=== PATIENT | female | born 1965 | race Caucasian/White ===

== ENCOUNTER 2019-02-21 06:58 | Day surgery (SDC) | payer BC ==
[~2019-02-21 06:58] MED LIST: Buffered Lidocaine 1% SYRIN* 1 ML/SYRINGE INTRADERM ONE; Dexamethasone IV* 4 MG/ML 1 ML (4 MG) IV SLOW PU ONE; Famotidine IV* 10 MG/ML 2 ML (20 mg) IV ONE; Lactated Ringers 1000 ML Bag* 1,000 ML IV SCH
[2019-02-21] MEDS ORDERED: Dexamethasone IV* 4 MG/ML 1 ML (4 MG) ONE (07:25)
[2019-02-21] MEDS ORDERED: Famotidine IV* 10 MG/ML 2 ML (20 mg) ONE (07:26)
[2019-02-21] MEDS ORDERED: Naloxone* 0.4 MG/ML 1 ML VIAL IV PRN (08:31)
[2019-02-21] MEDS ORDERED: Midazolam* 1 MG/ML 5 ML VIAL (5 MG) ONE (08:38)
[2019-02-21] MEDS ORDERED: fentaNYL* 50 MCG/ML 2 ML VIAL (100 MCG VIAL) ONE (08:38)
[2019-02-21] MEDS ORDERED: Ketorolac INJ* 30 MG/ML 1 ML VIAL ONE (08:38)
[2019-02-21] MEDS ORDERED: Ondansetron INJ* 2 MG/ML VIAL ONE (08:38)
[2019-02-21] MEDS ORDERED: Propofol* 10 MG/ML 20 ML BTL ONE (08:38)
[2019-02-21] MEDS ORDERED: Bupivacaine 0.25% SDV* 30 ML ONE (08:42)
[2019-02-21 10:04] VITALS: BP 122/78
--- NOTE | 2019-02-21 14:04 | OP ---
DATE OF OPERATION: 02/21/19 [facility] DATE OF : 69 SURGEON: Inocente Shetty MD. [employer] WORKER: HARSHA Headley. ANESTHESIOLOGIST: Dr. Daniel. ANESTHESIA: General. PRE-OP DIAGNOSIS: Right volar wrist ganglion cyst. POST-OP DIAGNOSIS: Right volar wrist ganglion cyst. OPERATIVE PROCEDURE: Excision of right volar wrist ganglion cyst. INDICATIONS: Amanda has a cyst that waxes and wanes in size. It was bothering her and she wanted to have it excised. ESTIMATED BLOOD LOSS: 5 mL. COMPLICATIONS: None. FINDINGS: See above and below. DESCRIPTION OF PROCEDURE: Amanda was seen in the preoperative holding area. The correct site, side, and procedure were identified. We came back to the operating room. The arm was prepped and draped in the usual fashion. A time- out was performed. I had already infiltrated with 0.25% Marcaine around the operative field. I made a lazy S incision over the area of the cyst. Dissection was carried down through the subcutaneous tissue. The radial artery was identified proximally and dissected free. It was draped over the radial side of the cyst and actually quite adherent to the cyst. Once I freed up the radial artery, that was retracted out of the way. The cyst was then excised via a marginal excision and taken back down to the volar radiocarpal joint where it was amputated. The stalk was then cauterized with Bovie cautery. The wound was irrigated out. I let down the tourniquet. The hand pinked up immediately. There was no significant bleeding. The tourniquet was reinflated. The skin was closed with nylon and the wound was dressed and volar wrist splint was applied. She was taken to the recovery room in stable condition. [id number] #: [id number] [facility]
== END 2019-02-21 10:12 | disposition home or self-care (01) ==
LOC: OREAST 06:58
PROVIDERS: ATTEND Orthopaedic Surgery Hand Surgery
DX: G56.01 Carpal tunnel syndrome, right upper limb (principal); I10 Essential (primary) hypertension
CPT/HCPCS: 88304; J1100; J1885; J2250; J2405; J2704; J3010; J3490